=== PATIENT | male | born 1970 | race African-American/Black ===

== ENCOUNTER 2020-04-09 10:45 | Outpatient (CLI) | payer OTHER ==
--- NOTE | 2020-04-09 11:17 | SLEEP CARE CONSULTATION ---
Information from patient questionnaire entered by Dannielle Hardin. I have reviewed and concur with the information entered by Dannielle Hardin. This document represents the service I personally performed and the decisions made by me, Aron Delgado MD, [facility]. History of Present Illness Service Date and Time: 04/09/2020 1045 Reason for Visit: New patient Chief Complaint: reports: Snoring, Observed pauses in breathing, Fatigue, Frequent awakenings at night Duration of Symptoms: 2 years Usual bedtime: 9-10 pm Time it takes to fall asleep: 60 mins Snores at night: Yes Observed to quit breathing while asleep: Yes Sleeps alone due to snoring: No Number of times waking at night: 2-3 Reasons for waking at night: reports: Snoring, Bathroom, Other (hot) Toss, Turn, or Twitch while sleeping: Yes Recalls having dreams: No Usually gets out of bed at: 5:30-6 am Feels refreshed in the morning: No Morning headache: Yes (sometimes) Sleepy or fatigued during the day: Yes Ever fallen asleep while driving: No Takes day naps: No Dreams during day naps: No Prior sleep studies: Yes Year and Where: 2018 - [facility] did not record and did not redo. Additional HPI information: Mr. Beasley complains of fatigue and daytime sleepiness despite getting enough sleep at night. He also snores loudly and his has seen him quit breathing. He had a home sleep apnea test through [facility] 2 years ago the was inconclusive because of data loss. He also has hypertension. 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 Patient is and lives in [place]. Have you smoked in the past 12 months: No Cigarettes per day (20/pack): 10 Years of smokin Quit date: 10/2016 Smoking Pack Years: 12.5 Alcohol use: Yes Alcohol amount and frequency: 3 during holidays Caffeine use: Yes Caffeine amount and frequency: 1 cup in the morning Family History Family history of sleep disordered breathing: No Allergies and Home Medications Drug allergies reviewed: Yes Home medication list reviewed: Yes (HCTZ) Review of Systems Weight gain over past 5 years: 25 Cardiovascular: reports: high blood pressure Respiratory: denies: shortness of breath, wheeze, sputum production, chronic cough, other Gastrointestinal: denies: heartburn, difficulty swallowing, nausea, vomitting, diarrhea, abdominal pain, other Urinary: denies: incontinence, frequency, urgency, impotence, other Neurological: denies: headaches, seizure, head trauma, disorientation, speech dysfunction, gait or balance problems, fainting or unconsciousness, other Psychiatric: denies: Attention Deficit Hyperactivity, anxiety, depression, mood disorder, claustrophobia, other Ear/Nose/Throat: reports: dry mouth/throat, wisdom teeth removed Endocrine: reports: sluggishness Physical Exam Vital signs obtained and entered by: Exam was deferred due to the COVID-19 pandemic Height: 5 ft 9 in Weight: 199 lb Body Mass Index: 29.3 BMI Classification: Overweight Impression and Plan IMPRESSION: 1. Obstructive Sleep Apnea-Hypopnea Syndrome, as suggested by history of loud and irregular snoring, observed cessation of breath while asleep, frequent awakenings during the night, unrefreshed sleep, cognitive impairment, and daytime hypersomnolence. Narrow oropharynx and obesity are common predisposing factors for obstructive sleep apnea-hypopnea syndrome. Untreated obstructive sleep apnea can also cause hypertension. Pathophysiology of sleep-disordered breathing was discussed. I recommend proceeding to polysomnography to confirm the diagnosis and to assess severity. If he has significant sleep disordered breathing, a manual CPAP titration study will also be performed to find the optimal treatment pressure. I informed the patient of what the sleep studies involve and after some discussion, he agreed to proceed. Plan: 1. Schedule an in-laboratory polysomnography + manual CPAP titration study 2. Avoid long distance driving or when feeling sleepy. 3. Avoid alcohol, sedative and muscle relaxant around bedtime. 4. Attempt to lose some weight. 5. Return in 1 to 2 weeks after the study to discuss results and initiate therapy. Visit Type: In Office Time Spent with Patient (minutes): 15 Provider Statement: I spent 100% of the Face to Face Visit with the patient with greater than 50% spent counseling the patient and coordination of care.
== END 2020-04-09 10:46 | disposition home or self-care (01) ==
LOC: SC 10:45
PROVIDERS: ATTEND Internal Medicine Pulmonary Disease
DX: R06.83 Snoring (principal); G47.10 Hypersomnia, unspecified; R06.81 Apnea, not elsewhere classified; R53.83 Other fatigue; I10 Essential (primary) hypertension; E66.3 Overweight; Z68.29 Body mass index [BMI] 29.0-29.9, adult
CPT/HCPCS: 99203; 99212

== ENCOUNTER 2020-04-23 20:45 | Outpatient (CLI) | payer OTHER | END 2020-04-23 20:46 | disposition home or self-care (01) | LOC: SC 20:45 | PROVIDERS: ATTEND Internal Medicine Pulmonary Disease | DX: G47.33 Obstructive sleep apnea (adult) (pediatric) (principal) | CPT/HCPCS: 95810 ==

== ENCOUNTER 2020-07-09 14:29 | Outpatient (CLI) | payer OTHER ==
--- NOTE | 2020-07-09 14:57 | SLEEP CARE CONSULTATION ---
Information from patient questionnaire entered by Jimena Verma. I have reviewed and concur with the information entered by Jimena Verma. This document represents the service I personally performed and the decisions made by , Cristin Glez ARNP. History of Present Illness Service Date and Time: 07/09/2020 1429 Previous diagnosis: Mild, Obstructive Sleep Apnea-Hypopnea Syndrome AHI: 12.4 Reason for follow up: first compliance (Set up 05/28) Equipment type: CPAP Equipment obtained from: [employer] (getting supplies as needed) Mask style: Nasal Backup mask available: Yes (old mask) Last cushion change: 2 weeks ago Prior sleep studies: No Year and Where: 2019 [facility] & 2017 [facility] did not record/did not redo. Type of Sleep Study: Polysomnography HPI additional information: ISAIAS ESCUDERO was diagnosed to have mild, AHI 12.4, obstructive sleep apnea- hypopnea syndrome and returned today for CPAP therapy first compliance follow- up. Sleep Study - Results Prior sleep studies: No Year and Where: 2017 - [facility] did not record and did not redo. CPAP Compliance Data - Data Reviewed with Patient Average duration of nightly device use: 7 h 18 min Compliance rate %: 100 Current pressure setting (cmH2O): 4-15 Average residual AHI: 1.5 Central apnea: 0.4 Obstructive apnea: 0.6 Subjective Patient concerns: reports: mask discomfort (from being pushed off due to side sleeping), dry mouth, nose, throat (sometimes). denies: aerophagia, air blowing in eyes, mask leak noise, condensation in mask/hose, nasal congestion, epistaxis, other Observed to snore while using device: No Current pressure setting perceived as: comfortable On therapy, patient: reports: sleeping better, awakening more refreshed, being more awake and alert during the day, more rested overall. denies: drowsiness while driving Initial [place] Sleepiness Scale score: 12 (In 2019) Current [place] Sleepiness Scale score: 15 Allergies and Home Medications Drug allergies reviewed: Yes (NKDA) Home medication list reviewed: Yes (no changes) Review of Systems Review of systems same as previous: Yes (no changes) Physical Exam Heart Rate: 58 O2 Saturation: 99 Height: 5 ft 9 in Weight: 205 lb Body Mass Index: 30.2 BMI Classification: Obese Impression and Plan 1. Obstructive Sleep Apnea-Hypopnea Syndrome, mild, with great treatment compliance and good apnea control. On CPAP therapy, the patient has better sleep quality and is more rested overall. Oral dryness can be reduced by adjusting humidity setting higher or heated hose lower or by adjusting both settings. Printed instructions given on how to change humidity and heated hose settings with rationale explaining why to change. Patient advised that chronic oral dryness can affect dental health and advised to follow up with dentist. In addition, there are oral dryness products that can be used to reduce dryness such as Biotene products, Dry mouth rinse and Xylomelts. Patient to discuss best option with dentist. Patient's apnea severity and rationale for treatment to reduce apnea, improve sleep quality and reduce cardiovascular and cerebrovascular events was reviewed. I also reviewed the benefit of consistent device use of CPAP for improvement of his hypertension. * Changeauto CPAP pressure to 8-10 cmH2O * Notify me if snoring with mask or feeling that the pressure is too much or too little * Attempt to lose weight * Call this office if any problems using CPAP * Return for follow up in 1-2 months, or sooner if concerns arise Visit Type: In Office Time Spent with Patient (minutes): 26 Provider Statement: I spent 100% of the Face to Face Visit with the patient with greater than 50% spent counseling the patient and coordination of care.
== END 2020-07-09 14:30 | disposition home or self-care (01) ==
LOC: SC 14:29
PROVIDERS: ATTEND Nurse Practitioner Family
DX: G47.33 Obstructive sleep apnea (adult) (pediatric) (principal); E66.9 Obesity, unspecified; Z68.30 Body mass index [BMI] 30.0-30.9, adult
CPT/HCPCS: 99212; 99213

== ENCOUNTER → 2020-08-08 | Outpatient (CLI) | payer OTHER ==
--- NOTE | 2020-08-08 13:54 | SLEEP CARE CONSULTATION ---
Information from patient questionnaire entered by Bridgette Kirby. I have reviewed and concur with the information entered by Bridgette Kirby. This document represents the service I personally performed and the decisions made by , Cristin Glez ARNP. History of Present Illness Service Date and Time: 08/08/2020 1340 Previous diagnosis: Mild, Obstructive Sleep Apnea-Hypopnea Syndrome AHI: 12.4 Reason for follow up: one month (with pressure change) Equipment type: CPAP Equipment obtained from: [employer] (getting supplies as needed) Mask style: Nasal Backup mask available: Yes (old mask) Last cushion change: over a month Prior sleep studies: Yes Year and Where: 04/2020 [facility], 2018 - [facility] test did not record Type of Sleep Study: Polysomnography HPI additional information: ISAIAS ESCUDERO was diagnosed to have mild, AHI 12.4, obstructive sleep apnea- hypopnea syndrome and returns for Telehealth visit today for CPAP therapy one month pressure change follow-up. Sleep Study - Results Type of Sleep Study: Polysomnography Prior sleep studies: No Year and Where: 2017 - [facility] - [facility] did not record and did not redo. CPAP Compliance Data - Data Reviewed with Patient Average duration of nightly device use: 7 hours 37 minutes Compliance rate %: 100 Current pressure setting (cmH2O): 8-10 Average residual AHI: 1.2 Central apnea: 0.4 Obstructive apnea: 0.4 Average large leak: 14.4 L/min Subjective Patient concerns: reports: dry mouth, nose, throat (dry mouth, twice a week, better than before; added water for humidity). denies: aerophagia, mask discomfort, air blowing in eyes, mask leak noise, condensation in mask/hose, nasal congestion, epistaxis, other Observed to snore while using device: No Current pressure setting perceived as: comfortable On therapy, patient: reports: sleeping better, awakening more refreshed, being more awake and alert during the day, more rested overall. denies: drowsiness while driving Initial [place] Sleepiness Scale score: 12 (In 2019) Allergies and Home Medications Drug allergies reviewed: Yes (NKDA) Home medication list reviewed: Yes (no changes) Review of Systems Review of systems same as previous: Yes (no changes) Physical Exam Vital signs obtained and entered by: Telehealth visit, no vitals obtained Height: 5 ft 9 in Impression and Plan 1. Obstructive Sleep Apnea-Hypopnea Syndrome, mild, with excellent treatment compliance and good apnea control. On CPAP therapy, the patient has better sleep quality and is more rested overall. He has had some minor oral dryness that is less than before he started with the CPAP. I reviewed with patient that oral dryness can be reduced by adjusting humidity setting higher or heated hose lower or by adjusting both settings. Patient's apnea severity and rationale for treatment to reduce apnea, improve sleep quality and reduce cardiovascular and cerebrovascular events was reviewed. I also reviewed the benefit of consistent device use of CPAP for his hypertension. * Continue auto CPAP pressure at 8-10 cmH2O * Notify me if snoring with mask or feeling that the pressure is too much or too little * Attempt to lose weight * Call this office if any problems using CPAP * Return for follow up in 3 months, or sooner if concerns arise Counseling Topics: Spare mask, Weight loss health impact Visit Type: Telehealth Video Video Type: Doximity Patient Location: work offic Location of Provider: Home Patient agrees and consents to this telehealth visit type: Yes Patient agrees to have their insurance billed: Yes Time Spent with Patient (minutes): 15 Provider Statement: I spent 100% of the Telehealth Video Call with the patient with greater than 50% spent counseling the patient and coordination of care.
== END ==
LOC: SC 13:40
PROVIDERS: ATTEND Nurse Practitioner Family
DX: G47.33 Obstructive sleep apnea (adult) (pediatric) (principal)

== ENCOUNTER 2020-11-06 13:56 | Outpatient (CLI) | payer OTHER ==
--- NOTE | 2020-11-06 14:20 | SLEEP CARE CONSULTATION ---
Information from patient questionnaire entered by Jimena Verma. I have reviewed and concur with the information entered by Jimena Verma. This document represents the service I personally performed and the decisions made by , Cristin Glez ARNP. History of Present Illness Service Date and Time: 11/06/2020 1356 Previous diagnosis: Mild, Obstructive Sleep Apnea-Hypopnea Syndrome AHI: 12.4 Reason for follow up: three month (followup) Equipment type: CPAP Mask style: Nasal (wisp type) Backup mask available: Yes (other mask) Last cushion change: last week Prior sleep studies: No Year and Where: 2018 - [facility] did not record and did not redo. Type of Sleep Study: Polysomnography HPI additional information: ISAIAS ESCUDERO was diagnosed to have mild, AHI 12.4, obstructive sleep apnea- hypopnea syndrome and returned today for CPAP therapy three month follow-up. Sleep Study - Results Type of Sleep Study: Polysomnography Prior sleep studies: No Year and Where: 2017 [facility] did not record and did not redo. CPAP Compliance Data - Data Reviewed with Patient Average duration of nightly device use: 7 h 22 min Compliance rate %: 99 Current pressure setting (cmH2O): 8-10 Average residual AHI: 1.2 Central apnea: 0.5 Obstructive apnea: 0.4 Subjective Missed days of use due to: reports: other (Power outage) Patient concerns: denies: aerophagia, mask discomfort, air blowing in eyes, mask leak noise, condensation in mask/hose, nasal congestion, dry mouth, nose, throat, epistaxis, other Observed to snore while using device: No Current pressure setting perceived as: comfortable On therapy, patient: reports: sleeping better, awakening more refreshed, being more awake and alert during the day, more rested overall. denies: drowsiness while driving Initial [place] Sleepiness Scale score: 12 (In 2019) Current [place] Sleepiness Scale score: 0 Allergies and Home Medications Drug allergies reviewed: Yes (none) Home medication list reviewed: Yes (no changes) Review of Systems Review of systems same as previous: Yes (no changes) Physical Exam Heart Rate: 76 O2 Saturation: 97 Height: 5 ft 9 in Weight: 211 lb Body Mass Index: 31.1 BMI Classification: Obese Impression and Plan 1. Obstructive Sleep Apnea-Hypopnea Syndrome, mild, with good treatment compliance and good apnea control. On CPAP therapy, the patient has better sleep quality and is more rested overall. Patient was advised to try to lose weight. Currently patients BMI is 31.1. Obesity increases the risk of apnea, CPAP pressure requirements and overall health risks especially cardiovascular and diabetes. Thus patient is advised to try to lose weight. Weight loss can be done with reducing portion size, reducing refined foods and balancing content with vegetables, fruit and whole grain foods. Symptoms to report for additional pressure adjustment discussed. Patient's apnea severity and rationale for treatment to reduce apnea, improve sleep quality and reduce cardiovascular and cerebrovascular events was reviewed. I also reviewed the benefit of consistent device use of CPAP for hypertension. * Continue auto CPAP pressure at 8-10 cmH2O * Notify me if snoring with mask or feeling that the pressure is too much or too little * Attempt to lose weight * Call this office if any problems using CPAP * Return for follow up in 6 months, or sooner if concerns arise Counseling Topics: Spare mask, Weight loss health impact Visit Type: In Office Time Spent with Patient (minutes): 14 Provider Statement: I spent 100% of the Face to Face Visit with the patient with greater than 50% spent counseling the patient and coordination of care.
== END 2020-11-06 13:57 | disposition home or self-care (01) ==
LOC: SC 13:56
PROVIDERS: ATTEND Nurse Practitioner Family
DX: G47.33 Obstructive sleep apnea (adult) (pediatric) (principal); E66.9 Obesity, unspecified; Z68.31 Body mass index [BMI] 31.0-31.9, adult
CPT/HCPCS: 99212

== ENCOUNTER 2021-05-06 13:37 | Outpatient (CLI) | payer OTHER ==
--- NOTE | 2021-05-06 13:57 | SLEEP CARE CONSULTATION ---
Information from patient questionnaire entered by Dannielle Hardin. I have reviewed and concur with the information entered by Dannielle Hardin. This document represents the service I personally performed and the decisions made by , Cristin Glez ARNP. History of Present Illness Service Date and Time: 05/06/2021 1337 Previous diagnosis: Mild, Obstructive Sleep Apnea-Hypopnea Syndrome AHI: 12.4 (in 2019) Reason for follow up: six month Equipment type: CPAP Equipment obtained from: [email or web address] (getting supplies as needed) Mask style: Nasal (wisp type) Backup mask available: Yes (old mask) Last cushion change: 1 month Prior sleep studies: Yes Year and Where: 2019 - [facility]; 2017(T) - [facility] Type of Sleep Study: Polysomnography HPI additional information: ISAIAS ESCUDERO was diagnosed to have mild, AHI 12.4, obstructive sleep apnea- hypopnea syndrome and returned today for CPAP therapy six month follow-up. CPAP Compliance Data - Data Reviewed with Patient Average duration of nightly device use: 6 hr 39 min Compliance rate %: 99 (180 days) Current pressure setting (cmH2O): 8-10 Humidity settin Average residual AHI: 1.4 Central apnea: 0.6 Obstructive apnea: 0.5 Subjective Patient concerns: reports: dry mouth, nose, throat, other (headache; once a month, may not be connected to CPAP). denies: aerophagia, mask discomfort, air blowing in eyes, mask leak noise, condensation in mask/hose, nasal congestion, epistaxis Observed to snore while using device: No Current pressure setting perceived as: comfortable On therapy, patient: reports: sleeping better, awakening more refreshed, being more awake and alert during the day, more rested overall. denies: drowsiness while driving Initial [place] Sleepiness Scale score: 12 (In 2019) Current [place] Sleepiness Scale score: 2 Allergies and Home Medications Home medication list reviewed: Yes (no changes) Review of Systems Review of systems same as previous: No (right shoulder pain, will start PT) Physical Exam Heart Rate: 75 O2 Saturation: 98 Height: 5 ft 9 in Weight: 202 lb Body Mass Index: 29.8 BMI Classification: Overweight Impression and Plan 1. Obstructive Sleep Apnea-Hypopnea Syndrome, mild, with excellent treatment compliance and good apnea control. On CPAP therapy, the patient has better sleep quality and is more rested overall. He has been getting more headaches but he states they can happen anytime of day and he does not feel it is related to the CPAP. He had a couple of times over the last few months where he got dry mouth but he says it has not been consistently dry every morning. He has not been trying to lose weight. I encouraged him to try to lose some weight to improve his overall health and he voiced understanding. Patient's apnea severity and rationale for treatment to reduce apnea, improve sleep quality and reduce cardiovascular and cerebrovascular events was reviewed. I also reviewed the benefit of consistent device use of CPAP for hypertension. * Continue auto CPAP pressure at 8-10 cmH2O * Notify me if snoring with mask or feeling that the pressure is too much or too little * Attempt to lose weight * Call this office if any problems using CPAP * Return for follow up in 1 year, or sooner if concerns arise Counseling Topics: Spare mask, Weight loss health impact Visit Type: In Office Time Spent with Patient (minutes): 13 Provider Statement: I spent 100% of the Face to Face Visit with the patient with greater than 50% spent counseling the patient and coordination of care.
== END 2021-05-06 13:38 | disposition home or self-care (01) ==
LOC: SC 13:37
PROVIDERS: ATTEND Nurse Practitioner Family
DX: G47.33 Obstructive sleep apnea (adult) (pediatric) (principal)
CPT/HCPCS: 99212

== ENCOUNTER 2021-07-03 07:53 | Outpatient (CLI) | payer OTHER ==
--- NOTE | 2021-07-03 11:54 | MRI Report ---
PROCEDURE: Knee RT W/O INDICATIONS: PAIN IN RIGHT KNEE, LOW BACK PAIN TECHNIQUE: Noncontrast sagittal PD fast spin echo and T2 fast spin echo with fat saturation, sagittal 3-D gradie nt sequence with fat saturation; coronal T1 spin echo and PD fast spin echo with fat saturation, and axial PD fast spin echo with fat saturation through the knee. COMPARISON: None. FINDINGS: Menisci: Medial meniscus: Intact. Lateral meniscus: Intact. Cruciate ligaments: Anterior cruciate ligament: Intact. Posterior cruciate ligament: Intact. Medial structures: The medial collateral ligament appears intact. The semimembranosus tendon appears intact. Visualized portions of the pes anserinus tendons appear normal. No abnormal bursal fluid. Lateral structures: Lateral collateral ligament appears grossly intact. Biceps femoris tendon appears intact. Iliotibial band within normal limits. Popliteus tendon within normal limits. Anterior structures: Mild patellar tendinopathy, with prepatellar and superficial infrapatellar edema. The quadriceps tendon appears intact. Medial and lateral patellofemoral ligaments appear grossly intact. Patellar alignment is normal. Hoffa's fat pad unremarkable. Bones and cartilage: Bones: No bone marrow contusions or fractures. Medial compartment: Cartilage intact. Lateral compartment: Cartilage intact. Patellofemoral compartment: Mild surface fraying of the patellar cartilage. Fissuring of the central femoral trochlear cartilage with small sub-5 mm cyst versus erosion seen on image [id number]. Joint space: No joint effusion. Multiloculated Andre's cyst measuring approximately 5 cm a cephalocaudad dimension. No specific evidence of loose body identified. IMPRESSION: Patellar tendinopathy with adjacent fluid/edema. Mild femoral trochlear chondromalacia, with underlying marrow signal changes as above. Multiloculated Nadre's cyst. Reviewed by: Efrem Simeon MD on 07/03/2021 11:53 AM PDT Approved by: Efrem Simeon MD on 07/03/2021 11:53 AM PDT Station ID: [id number]
--- NOTE | 2021-07-03 14:17 | MRI Report ---
PROCEDURE: Lumbar Spine W/O INDICATIONS: PAIN IN RIGHT KNEE, LOW BACK PAIN TECHNIQUE: Noncontrast sagittal T1 spin echo and T2 fast echo, sagittal STIR, axial T1 and T2 fast spin echo thr ough the lumbar spine. In cases with scoliosis, additional coronal T2 fast spin echo may be performe d. COMPARISON: None. FINDINGS: Image quality: Excellent. Alignment and Curvature: No plain films are available for comparison. Thus, for numbering purposes, 5 lumbar type vertebral bodies will be presumed for the current report. This should be confirmed with plain film correlation prior to any lumbar spinal intervention. There is loss of normal lumbar lordo sis. There is mild grade 1 retrolisthesis of L4 on L5 and L5 on S1. Bone Marrow: Marrow is of normal overall signal. No acute vertebral body compression fractures. Th ere is minimal reactive signal within the end plates adjacent to the L4-L5 and L5-S1 intervertebral d iscs. Spinal Cord: Conus medullaris terminates at the L1-L2 disc space level. Visualized cord demonstrate s normal signal and size. Paraspinous Soft Tissues: No paravertebral masses. T12-L1: Normal in appearance. L1-L2: Normal in appearance. L2-L3: Normal in appearance. L3-L4: Mild facet and ligament flavum hypertrophy. Mild epidural lipomatosis. No significant canal stenosis. Mild bilateral foraminal stenosis. L4-L5: Mild disc desiccation and diffuse disc bulge with superimposed small central protrusion. Mil d facet and ligament flavum hypertrophy. Mild canal stenosis. Mild bilateral foraminal stenosis. L5-S1: Mild disc height loss and desiccation. Mild diffuse disc bulge with superimposed small centr al protrusion. Mild facet and ligament flavum hypertrophy. Mild canal stenosis. Mild bilateral forami nal stenosis. IMPRESSION: 1. Multilevel degenerative disc and facet disease, in addition to epidural lipomatosis and ligamentum flavum hypertrophy. 2. Mild multilevel canal and foraminal stenoses. No neural impingement. 3. Five lumbar type vertebral bodies were presumed for the purposes of the current report. Correlati on with plainfilms for numbering purposes is recommended prior to any lumbar spinal intervention. Reviewed by: Betty Hardin MD on 07/03/2021 2:16 PM PDT Approved by: Betty Hardin MD on 07/03/2021 2:16 PM PDT Station ID: [id number]
== END 2021-07-03 07:54 | disposition home or self-care (01) ==
LOC: DI 07:53
PROVIDERS: ATTEND Family Medicine
DX: M94.261 Chondromalacia, right knee (principal); M71.21 Synovial cyst of popliteal space [Baker], right knee; M67.961 Unspecified disorder of synovium and tendon, right lower leg; M47.816 Spondylosis without myelopathy or radiculopathy, lumbar region; M47.817 Spondylosis without myelopathy or radiculopathy, lumbosacral region; M51.36 Other intervertebral disc degeneration, lumbar region; M48.061 Spinal stenosis, lumbar region without neurogenic claudication; M51.37 Other intervertebral disc degeneration, lumbosacral region; M48.07 Spinal stenosis, lumbosacral region

== ENCOUNTER 2021-09-17 07:53 | Outpatient (CLI) | payer OTHER ==
--- NOTE | 2021-09-17 11:15 | MRI Report ---
PROCEDURE: Shoulder RT W/O INDICATIONS: RIGHT SHOULDER PAIN TECHNIQUE: Noncontrast oblique coronal T2 fast spin echo with fat saturation, oblique sagittal T1 spin echo and T2 fast spin echo with fat saturation, axial T1 spin echo and T2 fast spin echo with fat saturation t hrough the shoulder. COMPARISON: None. FINDINGS: Image quality: Excellent. Rotator cuff: Tendinosis and low-grade articular and bursal surface partial-thickness tear involving distal supraspinatus at its insertion on humeral head is seen extending to muscular tendinous junctio n. Distal infraspinatus and subscapularis tendinosis is seen. No full-thickness rotator cuff tendon r upture. No rotator cuff muscle atrophy on sagittal images. Bones and bursae: There is marrow edema involving distal clavicle adjacent to the sternoclavicular kiet int. No discrete fracture line is noted.. Moderate acromioclavicular joint osteoarthritic changes are seen with prominent downward osteophyte formation depressing on musculotendinous junction of suprasp inatus. Small joint effusion and subacromial subdeltoid bursal fluid is noted. Capsule and soft tissues: There is no definite focal labral tear. The glenohumeral ligaments are inta ct. The long head of the biceps tendinosis is seen. The rotator interval appears normal, without fibr osis. The coracohumeral ligament is normal in thickness. IMPRESSION: 1. Tendinosis and low-grade articular and bursal surface partial-thickness involving distal supraspin atus extending to muscular tendinous junction. Distal infraspinatus and subscapularis tendinosis. No full-thickness rotator cuff tendon rupture. 2. Moderate osteoarthritic changes involving acromioclavicular joint as above. Edema involving distal clavicle without discrete fracture line and may represent contusion versus changes related to osteoa rthritis. Small amount of joint effusion and subacromial subdeltoid bursal fluid. 3. No definite focal labral tear. Proximal intra-articular portion of long head of biceps tendinosis. Reviewed by: Antwon Vazquez MD on 09/17/2021 11:13 AM PST Approved by: Antwon Vazquez MD on 09/17/2021 11:13 AM PST Station ID: [id number]
== END 2021-09-17 07:54 | disposition home or self-care (01) ==
LOC: DI 07:53
PROVIDERS: ATTEND Family Medicine
DX: M75.111 Incomplete rotator cuff tear or rupture of right shoulder, not specified as traumatic (principal); M19.011 Primary osteoarthritis, right shoulder; M25.411 Effusion, right shoulder; M75.91 Shoulder lesion, unspecified, right shoulder